=== PATIENT | female | born 1975 | race Two or more races ===

== ENCOUNTER 2021-01-27 10:20 | Emergency (ER) | payer OTHER ==
[~2021-01-27] VITALS: Ht 157.5 cm; Wt 74.8 kg
[2021-01-27] MEDS ORDERED: SYNTHROID100 MCG PO (10:26)
[2021-01-27] MEDS ORDERED: RESTORIL30 M1 PO (10:27)
== END 2021-01-27 18:22 | disposition home or self-care (01) ==
LOC: ER 10:20
DX: N83.291 Other ovarian cyst, right side (principal); N93.8 Other specified abnormal uterine and vaginal bleeding

== ENCOUNTER 2022-07-30 06:23 | Day surgery (SDC) | payer OTHER ==
[~2022-07-30] VITALS: Ht 157.5 cm; Wt 77.1 kg
[~2022-07-30 06:23] MED LIST: ATIVAN1 M1 PO; BUPROPION; LAMICTAL XR300 MG PO; RESTORIL30 M1 PO; SYNTHROID100 MCG PO
[2022-07-30] MEDS ORDERED: ACETAMINOPHEN500 M1 PO (10:07)
== END 2022-07-30 11:50 | disposition home or self-care (01) ==
LOC: CIR.AMB 06:23
PROVIDERS: ATTEND Obstetrics & Gynecology
DX: N84.0 Polyp of corpus uteri (principal); F17.200 Nicotine dependence, unspecified, uncomplicated; E03.9 Hypothyroidism, unspecified; Z88.6 Allergy status to analgesic agent; Z20.822 Contact with and (suspected) exposure to COVID-19

== ENCOUNTER 2024-03-19 10:07 | Outpatient (CLI) | payer OTHER ==
[~2024-03-19 10:07] MED LIST changes: +ACETAMINOPHEN500 M1 PO
== END 2024-03-19 10:13 | disposition home or self-care (01) ==
LOC: SONOGRAMA 10:07
DX: E03.9 Hypothyroidism, unspecified (principal); E04.1 Nontoxic single thyroid nodule

== ENCOUNTER 2024-03-26 07:59 | Outpatient (CLI) | payer OTHER | END 2024-03-26 08:00 | disposition home or self-care (01) | LOC: NUCLEAR 07:59 | DX: I65.23 Occlusion and stenosis of bilateral carotid arteries (principal); G30.9 Alzheimer's disease, unspecified ==

== ENCOUNTER 2024-03-26 09:44 | Outpatient (CLI) | payer OTHER | END 2024-03-26 09:52 | disposition home or self-care (01) | LOC: TOM 09:44 | DX: G30.9 Alzheimer's disease, unspecified (principal); G31.84 Mild cognitive impairment of uncertain or unknown etiology | CPT/HCPCS: 70470; Q9965 ==